=== PATIENT | female | born 2005 | race Two or more races ===

== ENCOUNTER 2023-05-18 15:43 | Emergency (ER) | payer SELFPAY ==
[~2023-05-18] VITALS: Ht 162.6 cm; Wt 55.0 kg
[2023-05-18 16:02] VITALS: O2SAT 99
[2023-05-18 16:17] VITALS: PULSE 99
== END 2023-05-18 16:52 | disposition home or self-care (01) ==
LOC: ER 15:43
DX: R05.9 Cough, unspecified (principal); Z20.822 Contact with and (suspected) exposure to COVID-19; Z53.21 Procedure and treatment not carried out due to patient leaving prior to being seen by health care provider
CPT/HCPCS: 99281; 87426; 87804 ×2; C9803